=== PATIENT | female | born 1970 | race African-American/Black ===

== ENCOUNTER 2017-11-12 09:23 | Emergency (ER) | payer MEDICAID ==
[~2017-11-12] VITALS: Ht 165.1 cm; Wt 64.0 kg
[2017-11-12] MEDS ORDERED: ONDANSETRON HCL 4MG/2ML VIAL IV STA (10:01)
[2017-11-12] MEDS ORDERED: SODIUM CHLORIDE 0.9% 1,000 ML IV ONE (10:01)
[2017-11-12] MEDS ORDERED: MORPHINE SULFATE 4 MG/ML CPJ (NOT FOR IM USE) IV STA (10:01)
[2017-11-12 10:17] LABS: HEMATOCRIT. 33.7 % (36.0-48.0); HEMOGLOBIN. 10.7 g/dL (12.0-16.0); MEAN CORPUSCULAR VOLUME 78.5 fL (81.0-99.0); MEAN PLATELET VOLUME 8.1 fl (7.4-10.4); PLATELET 219 x1000/uL (130-400); RED BLOOD CELL COUNT 4.29 mill/uL (4.2-5.4); RED CELL DISTRIBUTION WIDTH 18.4 % (11.6-14.6)
[2017-11-12 10:23] LABS: CHLORIDE 107 mEq/L (98-107)
[2017-11-12 10:25] LABS: PROTHROMBIN TIME 10.6 sec (9.4-11.6)
[2017-11-12] MEDS ORDERED: ACETAMINOPHEN 500MG TABLET PO ONE (10:30)
[2017-11-12 10:31] LABS: PLATELET ESTIMATE NORMAL
[2017-11-12 10:44] LABS: CLARITY URINE CLEAR (CLEAR); COLOR URINE YELLOW (YELLOW); KETONES URINE NEGATIVE (NEGATIVE); LEUKOCYTE ESTERASE URINE NEGATIVE (NEGATIVE); NITRITE URINE NEGATIVE (NEGATIVE); OCCULT BLOOD URINE 3+ (NEGATIVE); PH URINE 6.5 (4.5-8.0); PROTEIN URINE NEGATIVE (NEGATIVE); SPECIFIC GRAVITY URINE 1.019 (1.005-1.030); UROBILINOGEN URINE 0.2 E.U./dL (0.2-1.0)
[2017-11-12 11:07] LABS: *AMPHETAMINES SCREEN URINE NEGATIVE (NEGATIVE); *BARBITURATES SCREEN URINE NEGATIVE (NEGATIVE); *BENZODIAZEPINES SCREEN URINE NEGATIVE (NEGATIVE); *COCAINE SCREEN URINE NEGATIVE (NEGATIVE); METHADONE URINE SCREEN NEGATIVE (NEGATIVE)
[2017-11-12 11:08] LABS: OPIATES URINE SCREEN NEGATIVE (NEGATIVE)
[2017-11-12 11:14] LABS: PHENCYCLIDINE URINE SCREEN NEGATIVE (NEGATIVE)
[2017-11-12 11:17] LABS: CANNABINOID URINE SCREEN PRESUMTIVE POSITIVE (NEGATIVE)
[2017-11-12 13:50] VITALS: BP 116/78
== END 2017-11-12 14:29 | disposition home or self-care (01) ==
LOC: ER 09:23
DX: O20.0 Threatened abortion (principal); O34.11 Maternal care for benign tumor of corpus uteri, first trimester; Z3A.00 Weeks of gestation of pregnancy not specified
CPT/HCPCS: 36415; 76801; 76817; 80053; 80305; 81003; 81025; 83690; 84702; 85025; 85610; 86850; 86900; 86901; 99285; J7030; Z7610

== ENCOUNTER 2017-11-15 11:26 | Emergency (ER) | payer MEDICAID ==
[~2017-11-15] VITALS: Ht 165.1 cm; Wt 64.0 kg
[2017-11-15 12:01] LABS: BASOPHILS % 0.3 % (0.0-2.0); EOSINOPHILS % 0.3 % (0.0-5.0); HEMATOCRIT. 32.4 % (36.0-48.0); HEMOGLOBIN. 10.4 g/dL (12.0-16.0); LYMPHOCYTES % 8.9 % (20.0-50.0); MEAN CORPUSCULAR HEMOGLOBIN 25.3 pg (28.0-32.0); MEAN CORPUSCULAR VOLUME 79.2 fL (81.0-99.0); MEAN PLATELET VOLUME 8.2 fl (7.4-10.4); MONOCYTES % 10.4 % (2.0-8.0); NEUTROPHILS % 80.1 % (40.0-76.0); PLATELET 199 x1000/uL (130-400); RED BLOOD CELL COUNT 4.09 mill/uL (4.2-5.4); RED CELL DISTRIBUTION WIDTH 18.2 % (11.6-14.6)
[2017-11-15 12:08] LABS: CHLORIDE 105 mEq/L (98-107)
[2017-11-15 12:59] LABS: B-HCG QUANTITATIVE 1048 mIU/mL (<3)
[2017-11-15 15:31] VITALS: BP 99/49
== END 2017-11-15 15:33 | disposition home or self-care (01) ==
LOC: ER 13:00
DX: O03.9 Complete or unspecified spontaneous abortion without complication (principal); O99.331 Smoking (tobacco) complicating pregnancy, first trimester; F17.200 Nicotine dependence, unspecified, uncomplicated; O99.321 Drug use complicating pregnancy, first trimester; F12.10 Cannabis abuse, uncomplicated; Z3A.00 Weeks of gestation of pregnancy not specified
CPT/HCPCS: 36415; 76801; 80048; 84702; 85025; 99285